=== PATIENT | female | born 1935 | race Caucasian/White ===

== ENCOUNTER 2017-10-12 11:04 | Emergency (ER) | payer MEDICARE, OTHER ==
[~2017-10-12] VITALS: Ht 162.6 cm; Wt 70.0 kg
[~2017-10-12 11:04] MED LIST: Z.0.NO CURRENT MEDS
[2017-10-12 11:12] VITALS: BP 170/79; PULSE 90; RESP 17; TEMP 99.2; O2SAT 93
--- NOTE | 2017-10-12 12:29 | PD ---
HPI Chief Complaint: Cold / Flu Symptoms Time Seen by Provider: 12:27 Travel History International Travel<30 days: No Contact w/Intl Traveler<30days: No Traveled to known affect area: No History of Present Illness HPI Patient complains of 3 days worth of productive sputum initially yellowish over the last 3 days, however over last night it started to this morning started to be blood-tinged. Patient denies any fever, weight loss, night sweats. Also denies any knowledge of any sick contacts. Patient denies any nausea vomiting diarrhea abdominal pain flank pain chest pain headache or neck pain. No known drug allergy Past medical history significant for tonsillectomy, hypertension, PFSH Past Medical History Hypertension: Yes Influenza Vaccination: No ?: Not Past Surgical History Tonsillectomy: Yes Social History Alcohol Use: Yes (OCCASIONAL) Tobacco Use: No Substance Use: No Allergies-Medications (Allergen,Severity, Reaction): Coded Allergies: No Known Allergies (Unverified Adverse Reaction, Unknown, 10/12/17) Reported Meds & Prescriptions Reported Meds & Active Scripts Active Review of Systems General / Constitutional: No: Fever Eyes: No: Visual changes HENT: No: Headaches Cardiovascular: No: Chest Pain or Discomfort Respiratory: Positive: Cough Gastrointestinal: No: Abdominal Pain Genitourinary: No: Dysuria Musculoskeletal: No: Pain Skin: No Rash Neurologic: No: Weakness Psychiatric: No: Depression Endocrine: No: Polydipsia Hematologic/Lymphatic: No: Easy Bruising Physical Exam Narrative GENERAL: SKIN: Warm and dry. HEAD: Atraumatic. Normocephalic. EYES: Pupils equal and round. No scleral icterus. No injection or drainage. ENT: No nasal bleeding or discharge. Mucous membranes pink and moist. NECK: Trachea midline. No JVD. CARDIOVASCULAR: Regular rate and rhythm. RESPIRATORY: No accessory muscle use. Clear to auscultation everywhere except to left lower lobe region, mild crackles. Breath sounds equal bilaterally. GASTROINTESTINAL: Abdomen soft, non-tender, nondistended. MUSCULOSKELETAL: Extremities without clubbing, cyanosis, or edema. No obvious deformities. NEUROLOGICAL: Awake and alert. No obvious cranial nerve deficits. Motor grossly within normal limits. Five out of 5 muscle strength in the arms and legs. Normal speech. PSYCHIATRIC: Appropriate mood and affect; insight and judgment normal. Data Data Last Documented VS Vital Signs Date Time Temp Pulse Resp B/P (MAP) Pulse Ox O2 Delivery O2 Flow Rate FiO2 10/12/17 11:12 99.2 90 17 170/79 (109) 93 Orders Orders Chest, Pa & Lat (10/12/17 11:15) MDM Medical Decision Making Medical Screen Exam Complete: Yes Emergency Medical Condition: Yes Medical Record Reviewed: Yes Interpretation(s) Pulse ox 97-98 on room air, excellent Pleth wave, this consistent with a normal pulse ox Differential Diagnosis Bronchitis versus pneumonia versus pleural effusion versus pulmonary edema Narrative Course Chest x-ray shows minimal left Herberger blurring likely secondary to either atelectasis or early infiltrate. Of note there is no lymphadenopathy in the perihilar region Diagnosis Primary Impression: Bronchiectasis versus bronchitis Patient Instructions: Acute Bronchitis (ED), General Instructions Scripts Ciprofloxacin (Cipro) 500 Mg Tab 500 MG PO BID for Infection, #10 TAB 0 Refills Prov: Arnold Horvath MD 10/12/17 Guaifenesin-Codeine Liq (Guaifenesin AC Liq) 100-10 Mg/5 Ml Syrp 10 ML PO Q6H Y for COUGH, #180 ML 0 Refills Prov: Arnold Horvath MD 10/12/17 Disposition: 01 DISCHARGE HOME Condition: Stable Arnold Horvath MD Oct 12, 2017 12:29
[2017-10-12] MEDS ORDERED: CIPR-9 PO (12:49)
[2017-10-12] MEDS ORDERED: GUAISYP4 PO (12:49)
[2017-10-12] MEDS ORDERED: CIPROFLOXACIN 500 MG TAB PO ONE (13:00)
[2017-10-12] MEDS ORDERED: BENZONATATE 100 MG CAP PO ONE (13:00)
--- NOTE | 2017-10-12 13:01 | RADRPT ---
EXAM DATE/TIME: 10/12/2017 11:35 [facility] COMPARISON: CHEST SINGLE AP, April 04, 2012, 16:04. INDICATIONS : Cough. Hemoptysis. MEDICAL HISTORY : None. SURGICAL HISTORY : None. ENCOUNTER: Initial ACUITY: 3 days PAIN SCORE: 2/10 LOCATION: Bilateral chest FINDINGS: PA and lateral views of the chest demonstrate lungs to be symmetrically aerated. Blunting of both can 't definitively represents small pleural effusions. Patchy airspace disease in left base could be chr onic. Biapical capping. Heart size is normal. Osseous structures are intact. CONCLUSION: 1. Faint interstitial process in the left base may be chronic. No confluent infiltrate. 2. Blunting of both costophrenic angles. Possible small bilateral pleural effusions. 3. Biapical capping. Willem Farrell MD on October 12, 2017 at 12:55 Board Certified Radiologist. This report was verified electronically.
== END 2017-10-12 13:49 | disposition home or self-care (01) ==
LOC: NEPD 11:04
DX: R09.3 Abnormal sputum (principal)
CPT/HCPCS: 71046; 99283